=== PATIENT | male | born 1985 | race African-American/Black ===

== ENCOUNTER 2021-07-16 06:01 | Emergency (ER) | payer SELFPAY ==
[~2021-07-16] VITALS: Ht 185.4 cm; Wt 73.0 kg
[~2021-07-16 06:01] MED LIST: NO MEDS
[2021-07-16] MEDS ORDERED: TETANUS, DIPHTHERIA, PERTUSSIS VAC/PF 0.5ML (>10YR OLD) IM ONE (08:15)
[2021-07-16] MEDS ORDERED: LIDOCAINE HCL 1% 20ML VIAL (Pyxis) INJ INFIL ONE (08:30)
[2021-07-16] MEDS ORDERED: HYDROCODONE/ACETAMINOPHEN 5/325MG TABLET PO ONE ×2 (08:30→10:15)
[2021-07-16] MEDS ORDERED: AMOX-424 MT (10:54)
[2021-07-16] MEDS ORDERED: HYDR-4001 MT (10:54)
[2021-07-16 12:44] VITALS: BP 124/87
== END 2021-07-16 12:48 | disposition home or self-care (01) ==
LOC: ER 06:01
DX: S61.012A Laceration without foreign body of left thumb without damage to nail, initial encounter (principal); F17.200 Nicotine dependence, unspecified, uncomplicated; F12.10 Cannabis abuse, uncomplicated; F15.10 Other stimulant abuse, uncomplicated; R07.81 Pleurodynia; I10 Essential (primary) hypertension; X94.1XXA Assault by hunting rifle, initial encounter; Y93.9 Activity, unspecified; Y92.89 Other specified places as the place of occurrence of the external cause; Y99.8 Other external cause status
CPT/HCPCS: 12001; 71101; 73080; 73130; 90471; 90715; 99284; A4217; J3490; Z7610